=== PATIENT | female | born 1945 | race Caucasian/White ===

== ENCOUNTER → 2019-11-26 | Outpatient (CLI) | payer MEDICARE ==
--- NOTE | 2019-11-26 10:01 | ECHOF ---
Referral Reason:I20.9 Angina MEASUREMENTS -------- HEIGHT: 162.6 cm WEIGHT: 57.2 kg BP: RVIDd: 2.1 cm (< 3.3) IVSd: 0.8 cm (0.6 - 1.1) LVIDd: 4.6 cm (3.9 - 5.3) LVPWd: 1.0 cm (0.6 - 1.1) IVSs: 1.2 cm LVIDs: 2.9 cm LVPWs: 1.5 cm LAESV Index (A-L): 33.14 ml/m Ao Diam: 2.8 cm (2.0 - 3.7) AV Cusp: 1.6 cm (1.5 - 2.6) LA Diam: 3.7 cm (2.7 - 3.8) MV EXCURSION: 18.742 mm (> 18.000) MV EF SLOPE: 93 mm/s (70 - 150) EPSS: 1.6 cm MV E Juan Ramon: 1.09 m/s MV DecT: 205 ms MV A Juan Ramon: 0.74 m/s MV E/A Ratio: 1.47 AV maxP.94 mmHg AV meanP.80 mmHg AR PHT: 556 ms RAP: 5.00 mmHg RVSP: 33.10 mmHg TAPSE: 31.28 mm FINDINGS -------- Sinus rhythm. This was a technically adequate study. LV size, wall thickness and systolic function are normal, with an EF greater than 55%. The left brielle tricular size is normal. The diastolic filling pattern is normal for the age of the patient 12.12. The right ventricle is normal in size. LA is moderately dilated 34-39 ml/m2 The right atrial size is normal. Interatrial and interventricular septum intact. There is mild aortic valve sclerosis. There is [id number] aortic regurgitation. Peak/mean g radient across the Aortic Valve is 14.94mmHg / 7.80mmHg. Mild mitral annular calcification present. Mild mitral regurgitation is present. The tricuspid valve appears structurally normal. Moderate tricuspid regurgitation present. Right ventricular systolic pressure is normal at < 35 mmHg. There is no pulmonic regurgitation present. The aortic root size is normal. Normal inferior vena cava with normal inspiratory collapse consistent with estimated right atrial pre ssure of 5 mmHg. There is no pericardial effusion. CONCLUSIONS -------- 1. LV size, wall thickness and systolic function are normal, with an EF greater than 55%. 2. The diastolic filling pattern is normal for the age of the patient 12.12 3. LA is moderately dilated 34-39 ml/m2 4. There is mild aortic valve sclerosis. 5. There is mhdb-tj-[id number] aortic regurgitation. 6. Peak/mean gradient across the Aortic Valve is 14.94mmHg / 7.80mmHg. 7. Mild mitral annular calcification present. 8. Mild mitral regurgitation is present. 9. Moderate tricuspid regurgitation present. DELIVERER MERCHANDISE: Mary Doll RDCS
--- NOTE | 2019-11-26 13:23 | EST ---
EXERCISE STRESS AGE: 76 SEX: F HT: 64" WT: 126 lbs. PROTOCOL: Nicholas STAGE: 2 DURATION OF EXERCISE: 6:00 HEART RATE REST: 51 BLOOD PRESSURE REST: 132/79 MAXIMUM HEART RATE ACHIEVED: 130 MAXIMUM BLOOD PRESSURE: 182/90 85% MPHR: 125. 100% MPHR: 147 METS: 7.3 INDICATIONS: CLINICAL INFORMATION: Baseline rhythm is sinus mechanism, rate of 51, normal axis and intervals, QS in V1 to V2, poor R-wave progression. Baseline blood pressure 132/79 mmHg. Patient exercised on a Nicholas protocol for 6 minutes reaching peak rate of 130 beats per minute which is equal to 88% maximum predicted heart rate. Peak blood pressure 182/90 mmHg. Test was terminated due to significant fatigue. There was no chest pain. Electrocardiograph monitoring revealed occasional single PVCs. There was no evidence of diagnostic ischemic ST deviation. CONCLUSION: 1. One good exercise tolerance with normal electrocardiographic response to exercise. 2. Occasional premature ventricular contractions. ODL / IJN: [id number] /
== END | disposition home or self-care (01) ==
LOC: RADNMMAIN 08:44
PROVIDERS: ATTEND Family Medicine
DX: I08.3 Combined rheumatic disorders of mitral, aortic and tricuspid valves (principal); I20.9 Angina pectoris, unspecified
CPT/HCPCS: 93017; 93306